=== PATIENT | female | born 1960 | race Caucasian/White ===

== ENCOUNTER 2021-04-18 08:31 | Emergency (ER) | payer OTHER ==
[~2021-04-18] VITALS: Ht 175.3 cm; Wt 129.5 kg
[2021-04-18] MEDS ORDERED: fentaNYL PF VIAL 100 MCG/2 ML VIAL IVP ONE (09:45)
[2021-04-18] MEDS ORDERED: DIPH,PERTUSS(ACELL),TET VAC/PF 0.5 ML SYRINGE. VAX IM ONE (09:45)
--- NOTE | 2021-04-18 09:59 | RAD ---
Exam Date: 04/18/2021 9:16 AM XR SHOULDER_LEFT 2+ VIEWS Indication: Reason: fall and shoulder pain / Spl. Instructions: / History: . FINDINGS/ IMPRESSION: There is a comminuted fracture the proximal humerus involving the surgical neck and greater tuberosit y, with mild displacement of the fracture fragments. Near-anatomic alignment is maintained. Widenin g of the subacromial space suggests a joint effusion, likely hemarthrosis. Mild degenerative changes are noted. No dislocation noted. Electronically signed by: Shelton Pitts MD (04/18/2021 9:57 AM) [id number]
--- NOTE | 2021-04-18 10:08 | PHYS DOC ---
Past Medical History Past Medical History: Hypertension Past Surgical History: No Surgical History Smoking Status: Never Smoker Alcohol Use: None General Adult EDM: Chief Complaint: MECHANICAL FALL HPI: HPI: Patient is a 60-year-old female that presents today with left shoulder pain and right knee pain. Patient states she was cleaning her floor and she was walking across the mopped floor and she fell landing on her knee and left left shoulder. She states this occurred early this morning, she was unable to get off the floor and was able to call 911 and was brought in by EMS. Patient states she has no LOC, no neck pain or head pain. Review of Systems: Review of Systems: Constitutional: Denies fever or chills. [] Eyes: Denies change in visual acuity. [] HENT: Denies nasal congestion or sore throat. [] Respiratory: Denies cough or shortness of breath. [] Cardiovascular: Denies chest pain or edema. [] GI: Denies abdominal pain, nausea, vomiting, bloody stools or diarrhea. [] : Denies dysuria. [] Musculoskeletal: Left shoulder pain and right knee pain Integument: Denies rash. [] Neurologic: Denies headache, focal weakness or sensory changes. [] Endocrine: Denies polyuria or polydipsia. [] Lymphatic: Denies swollen glands. [] Psychiatric: Denies depression or anxiety. [] Heart Score: C/O Chest Pain: N/A Risk Factors: Risk Factors: DM, Current or recent (<one month) smoker, HTN, HLP, family history of CAD, obesity. Risk Scores: Score 0 - 3: 2.5% MACE over next 6 weeks - Discharge Home Score 4 - 6: 20.3% MACE over next 6 weeks - Admit for Clinical Observation Score 7 - 10: 72.7% MACE over next 6 weeks - Early Invasive Strategies Current Medications: Current Medications Medications (Trade) Dose Ordered Sig/Radhames Start Time Stop Time Status Last Admin Dose Admin Diphtheria/ Tetanus/Acell Pertussis (ADACEL TDap SYRINGE) 0.5 ml ONCE ONCE 04/18/21 09:45 04/18/21 09:46 DC Fentanyl Citrate (Fentanyl 2ml Vial) 25 mcg 1X ONCE 04/18/21 09:45 04/18/21 09:46 DC Allergies: Allergies: Allergies Coded Allergies Type Severity Reaction Last Updated Verified No Known Drug Allergies 04/18/21 No Physical Exam: PE: Constitutional: Well developed, well nourished, moderate distress, non-toxic appearance. [] HENT: Normocephalic, atraumatic, bilateral external ears normal, oropharynx moist, no oral exudates, nose normal. [] Eyes: PERRLA, EOMI, conjunctiva normal, no discharge. [] Neck: Normal range of motion, no tenderness, supple, no stridor, no midline t enderness [] Cardiovascular:Heart rate regular rhythm, no murmur [] Lungs & Thorax: Bilateral breath sounds clear to auscultation [] Abdomen: Bowel sounds normal, soft, no tenderness, no masses, no pulsatile masses. [] Skin: Warm, dry, no erythema, no rash. [] Back: No tenderness, no CVA tenderness. [] Extremities: Left shoulder pain with light palpation, no elbow or wrist pain with flexion extension of each, neurovascular intact distal to the injury, 2+ radial pulse, right knee swollen large contusion noted to the knee, patient has 3+ pitting edema distal to the injury patient states is chronic 1+ pedal pulse noted Neurologic: Alert and oriented X 3, normal motor function, normal sensory function, no focal deficits noted. [] Psychologic: Affect normal, judgement normal, mood normal. [] Current Patient Data: Vital Signs: Vital Signs Date Time Temp Pulse Resp B/P (MAP) Pulse Ox O2 Delivery O2 Flow Rate FiO2 04/18/21 08:55 97.5 97 20 128/66 (86) 97 Room Air 97.5 EKG: EKG: [] Radiology/Procedures: Radiology/Procedures: REASON: fall PROCEDURE: KNEE RIGHT 4V AP, oblique, sunrise, and lateral views of the right knee were obtained. Indication: Pain after fall Comparison: none. Findings: No fracture, dislocation, significant degenerative changes, or effusion is seen. There is subcutaneous swelling anterior to patella. Electronically signed by: Misha Park MD (04/18/2021 10:18 AM) [id number][ REASON: fall and shoulder pain PROCEDURE: SHOULDER 2+V LEFT Exam Date: 04/18/2021 9:16 AM XR SHOULDER_LEFT 2+ VIEWS Indication: Reason: fall and shoulder pain / Spl. Instructions: / History: . FINDINGS/ IMPRESSION: There is a comminuted fracture the proximal humerus involving the surgical neck and greater tuberosity, with mild displacement of the fracture fragments. Near- anatomic alignment is maintained. Widening of the subacromial space suggests a joint effusion, likely hemarthrosis. Mild degenerative changes are noted. No dislocation noted. Electronically signed by: Shelton Pitts MD (04/18/2021 9:57 AM) [id number]] Course & Med Decision Making: Course & Med Decision Making Pertinent Labs and Imaging studies reviewed. (See chart for details) Patient states she lives by herself and does not have family in the area. Patient states she has a friend that she can call for a ride home but does not have anyone to stay with her Spoke to patient further at length about her radiology results patient states she does have a friend that she can stay with for the next day or so, she states she has a sister in [place] that she was going to contact to see if she can come for an extended period of time to stay with the patient. Patient is agreeable with going home with a shoulder immobilizer, pain medications and to follow-up with orthopedics in the next 5 to 7 days for further management of her humeral fracture Lindsey Disclaimer: Lindsey Disclaimer: This electronic medical record was generated, in whole or in part, using a voice recognition dictation system. Departure Departure Impression: Primary Impression: Fall Qualified Codes: W19.XXXA - Unspecified fall, initial encounter Additional Impressions: Humeral surgical neck fracture Qualified Codes: S42.212A - Unspecified displaced fracture of surgical neck of left humerus, initial encounter for closed fracture Knee contusion Qualified Codes: S80.01XA - Contusion of right knee, initial encounter Disposition: HOME / SELF CARE / HOMELESS Condition: STABLE Referrals: TAL PAGE II, MD Patient Instructions: Humerus Fracture, Treated with Immobilization, Knee Pain Additional Instructions: Wear shoulder immobilizer at all times Ice 20 minutes on 3-4 times daily to the left shoulder Take Tylenol or ibuprofen as needed for mild to moderate pain [id number] per label directed Hydrocodone take 1 tablet every 6 hours as needed for moderate to severe pain Follow-up with orthopedics this week by phone and get the earliest follow-up appointment with them Return to the emergency department if having increased pain not relieved by pain medication, start having numbness or tingling in your fingers or have any other concerns Scripts Hydrocodone Bit/Acetaminophen (HYDROCODONE-APAP 5-325 ) 1 Tab Tablet 1 TAB PO PRN Q6HRS PRN for PAIN, #20 TAB 0 Refills Prov: VALENTIN DEVI APRN 04/18/21 VALENTIN DEVI APRN Apr 18, 2021 10:08
--- NOTE | 2021-04-18 10:21 | RAD ---
AP, oblique, sunrise, and lateral views of the right knee were obtained. Indication: Pain after fall Comparison: none. Findings: No fracture, dislocation, significant degenerative changes, or effusion is seen. There is subcutaneou s swelling anterior to patella. Electronically signed by: Misha Park MD (04/18/2021 10:18 AM) [id number]
[2021-04-18] MEDS ORDERED: HYDR-2761 PO (11:26)
[2021-04-18 12:33] VITALS: BP 154/70
== END 2021-04-18 12:35 | disposition home or self-care (01) ==
LOC: ER 08:31
DX: S42.212A Unspecified displaced fracture of surgical neck of left humerus, initial encounter for closed fracture (principal); S80.01XA Contusion of right knee, initial encounter; I10 Essential (primary) hypertension; W18.39XA Other fall on same level, initial encounter; Y93.89 Activity, other specified; Y92.89 Other specified places as the place of occurrence of the external cause; Y99.8 Other external cause status
CPT/HCPCS: 29240; 73030; 73564; 90471; 90715; 99284